=== PATIENT | female | born 1970 | race Caucasian/White ===

== ENCOUNTER 2016-08-16 15:46 | Emergency (ER) | payer MEDICARE, MEDICAID ==
[~2016-08-16] VITALS: Ht 175.3 cm; Wt 78.3 kg
[~2016-08-16 15:46] MED LIST: ALBU18HF2 INH; DOCU-118 PO; ESCI20TA30 PO; GABA-338 PO; HYDR50TA48 PO; LURA80TA PO; OMEP-122 PO
[2016-08-16 15:48] VITALS: Ht 175.3 cm; Wt 78.3 kg
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
--- OUTSIDE RECORDS SUMMARY | 2016-08-16 15:52 | XMS REPORT | Continuity of Care Document ---
Author Author [facility] Organization [facility] Address Unknown Phone Unavailable Care Team Providers Care Clinical Leader Name Role Phone OTHER Primary Care Physician [phone] Insurance Providers Payer Name Policy Number Subscriber Name Relationship Medicare/Other Insurance [id number] Ciera Aguilar 18 Self [facility] Community Plan [id number] Ciera Aguilar 20 Self Advance Directives Directive Response Recorded Date/Time Advanced Directives Type None 09/16/13 6:03pm Problems Medical Problems Problem Onset Date Status Nausea & vomiting Unknown Active Chronic diarrhea Unknown Active Nausea & vomiting Unknown Active Neck pain Unknown Active Neck pain Unknown Active Nausea & vomiting Unknown Active Nausea & vomiting Unknown Active Abdominal pain, bilateral upper quadrant Unknown Active Nausea & vomiting Unknown Active Patient left without being seen Unknown Active Medications Medication Dose Route Sig Days/Qty Instructions Order Date Discontinued Date Status Zolpidem Tartrate 10 Mg PO BEDTIME 04/05/12 10/27/12 Discontinued Estradiol 2 Mg PO DA 09/16/13 Active Zolpidem Tartrate 10 Mg PO BEDTIME 09/16/13 Active Quetiapine Fumarate 150 Mg PO BEDTIME 09/16/13 Active Doxylamine Succinate 25 Mg PO BEDTIME 09/16/13 Active Docusate Sodium 100 Mg PO TWICE A DAY 09/16/13 Active Loratadine 10 Mg PO DAILY 09/16/13 Active Escitalopram Oxalate 10 Mg PO DAILY 09/16/13 Active Buspirone Hcl 10 Mg PO TWICE A DAY 09/16/13 Active Ranitidine Hcl 150 Mg PO TWICE A DAY 09/16/13 Active Cyclobenzaprine HCl 1 Tab PO THREE TIMES A DAY For SPASMS 12 Qty MAY CAUSE DROWSINESS OR DIZZINESS 12/27/13 Active Ibuprofen 1 Tab PO Every 8 Hours PRN PAIN 20 Qty 12/27/13 Active Hydrocodone/Acetaminophen 1 Tab PO EVERY 4-6 HOURS PRN PAIN 12 Qty Active Promethazine HCl 1 Tab PO EVERY 4-6 HOURS For NAUSEA &/OR VOMITING 30 Qty 08/05/14 Active Social History Social History Problem Response Recorded Date/Time Chewing Tobacco Status No 09/16/2013 7:02pm Hx Substance Use No 08/05/2014 1:33pm Hx Alcohol Use No 08/05/2014 1:33pm Has the pt used tobacco in the last 12 months Yes 04/07/2012 7:16am Tobacco Usage smoke 09/17/2013 1:02am Query Response Start Date Stop Date Smoking Status Current every day smoker Hospital Discharge Instructions No hospital discharge instructions. Plan of Care No plan of care. Functional Status Query Response Date Recorded Physical Hygiene Self August 05, 2014 1:33pm Physical Hygiene Self August 05, 2014 1:33pm Allergies, Adverse Reactions, Alerts Allergen Type Severity Reaction Status Last Updated No Known Allergies Active 08/21/14 Immunizations Name Given Type Hx Influenza Vaccination Y 2005 Historical Hx Pneumococcal Vaccination No Historical Hx Influenza Vaccination Y 2005 Historical Vital Signs Acute Vital Signs Vital Response Date/Time Temperature (Fahrenheit) 98.2 deg F (96.8 - 99.1) Temperature (Calculated Celsius) 36.09095 degrees C (36.0 - 37.3) Pulse Rate (adult) 64 bpm (60 - 100) Respiratory Rate 18 breaths/min (10 - 20) O2 Sat by Pulse Oximetry 64 % (90 - 100) Blood Pressure 118/70 mm Hg Height 5 ft 7 in Weight 179 lb Body Mass Index 28.0 kg/m^2 Results Test Source Date Result Interp. Ref. Range Comments Alanine Aminotransferase (ALT/SGPT) August 05, 2014 1:48pm 27 U/L N 9-52 Albumin August 05, 2014 1:48pm 4.1 G/DL N 3.5-5.0 Albumin/Globulin Ratio August 05, 2014 1:48pm 1.3 RATIO N 1.1-2.2 Alkaline Phosphatase August 05, 2014 1:48pm 55 U/L N 38-126 Amylase Level August 05, 2014 1:48pm 63 U/L N 30-110 Anion Gap August 05, 2014 1:48pm 9 MEQ/L N 5-15 Aspartate Amino Transf (AST/SGOT) August 05, 2014 1:48pm 22 U/L N 14-36 BUN/Creatinine Ratio August 05, 2014 1:48pm 10 RATIO N 6-26 Basophils # (Auto) August 05, 2014 1:48pm 0.1 T/MM3 N 0-0.2 Basophils (%) (Auto) August 05, 2014 1:48pm 0.6 % N 0-2 Blood Urea Nitrogen August 05, 2014 1:48pm 11.0 MG/DL N 7-17 Calcium Level August 05, 2014 1:48pm 9.3 MG/DL N 8.4-10.2 Calculated Osmolality August 05, 2014 1:48pm 271 MOSM/KG N 261-280 Carbon Dioxide Level August 05, 2014 1:48pm 27 MEQ/L N 22-30 Chemistry Specimen Hemolysis August 05, 2014 1:48pm < 15 0-25 0-25: No Hemolysis.26-70: Slight Hemolysis - can falsely elevate K and Urine Protein. 71-285: Moderate Hemolysis - can falsely elevate K, Troponin I, CA 19-9, PTH, CSF GLucose, and Urine Protein, and can falsely decrease Phenytoin. 286-999: Gross Hemolysis - can falsely elevate K, Troponin I, CA 19-9, PTH, CSF Glucose, and Urine Protine, and can falsely decrease Phenytoin. Recommend specimen recollection. Chloride Level August 05, 2014 1:48pm 105 MEQ/L N 98-107 Creatinine August 05, 2014 1:48pm 1.1 MG/DL N 0.7-1.2 Eosinophils # (Auto) August 05, 2014 1:48pm 0.2 T/MM3 N 0-0.5 Eosinophils (%) (Auto) August 05, 2014 1:48pm 2.9 % N 0-4 Globulin August 05, 2014 1:48pm 3.1 G/DL N 2.4-3.6 Glomerular Filtration Rate Calc August 05, 2014 1:48pm 55 - Glucose Level August 05, 2014 1:48pm 123 MG/DL H 65-110 Hematocrit August 05, 2014 1:48pm 41.9 % N 36-46 Hemoglobin August 05, 2014 1:48pm 14.3 GM/DL N 12-16 Human Chorionic Gonadotropin, Qual April 07, 2012 7:00am Negative - COMMENT WILL CALLCOMMENT WILL CALL Icterus Index August 05, 2014 1:48pm < 2 0-7 Immature Granulocyte # (Auto) August 05, 2014 1:48pm 0.01 T/MM3 N 0.00- 0.03 Immature Granulocyte % (Auto) August 05, 2014 1:48pm 0.1 % N 0.0-0.5 Lipase August 05, 2014 1:48pm 72 U/L N 23-300 Lymphocytes # (Auto) August 05, 2014 1:48pm 3.2 T/MM3 N 1-4.8 Lymphocytes (%) (Auto) August 05, 2014 1:48pm 37.6 % N 23-45 Mean Corpuscular Hemoglobin August 05, 2014 1:48pm 30.0 UUG N 26-34 Mean Corpuscular Hemoglobin Concent August 05, 2014 1:48pm 34.1 GM/DL N 31-37 Mean Corpuscular Volume August 05, 2014 1:48pm 87.8 UM3 N 80-100 Mean Platelet Volume August 05, 2014 1:48pm 10.8 UM3 N 9.4-12.4 Monocytes # (Auto) August 05, 2014 1:48pm 0.7 T/MM3 N 0-0.8 Monocytes (%) (Auto) August 05, 2014 1:48pm 8.1 % N 0-9.0 Neutrophils # (Auto) August 05, 2014 1:48pm 4.3 T/MM3 N 1.8-7.7 Neutrophils (%) (Auto) August 05, 2014 1:48pm 50.7 % N 33-66 Platelet Count August 05, 2014 1:48pm 216 T/MM3 N 130-400 Potassium Level August 05, 2014 1:48pm 4.3 MEQ/L N 3.6-5 RDW Standard Deviation August 05, 2014 1:48pm 40.8 FL N 36.9-50.2 Red Blood Count August 05, 2014 1:48pm 4.77 M/MM3 N 4.00-5.20 Sodium Level August 05, 2014 1:48pm 141 MEQ/L N 134-144 Total Bilirubin August 05, 2014 1:48pm 0.70 MG/DL N 0.20-1.30 Total Protein August 05, 2014 1:48pm 7.2 G/DL N 6.3-8.2 Turbidity August 05, 2014 1:48pm < 20 0-20 Urinalysis Comment August 05, 2014 1:36pm Microscopic not ind. - Has specimen been collected/obtained? Y Urine Bilirubin August 05, 2014 1:36pm Negative - Has specimen been collected/obtained? Y Urine Blood August 05, 2014 1:36pm Trace-intact H - Has specimen been collected/obtained? Y Urine Collection Type August 05, 2014 1:36pm Voided-not cc-midstr - Has specimen been collected/obtained? Y Urine Color August 05, 2014 1:36pm Yellow - Has specimen been collected/obtained? Y Urine Glucose (UA) August 05, 2014 1:36pm Negative - Has specimen been collected/obtained? Y Urine Ketones August 05, 2014 1:36pm Trace H - Has specimen been collected/obtained? Y Urine Leukocyte Esterase August 05, 2014 1:36pm Negative - Has specimen been collected/obtained? Y Urine Nitrite August 05, 2014 1:36pm Negative - Has specimen been collected/obtained? Y Urine Protein August 05, 2014 1:36pm Negative - Has specimen been collected/obtained? Y Urine Specific [place] August 05, 2014 1:36pm >=1.030 H - Has specimen been collected/obtained? Y Urine Turbidity August 05, 2014 1:36pm Clear - Has specimen been collected/obtained? Y Urine Urobilinogen August 05, 2014 1:36pm 0.2 EU/DL - Has specimen been collected/obtained? Y Urine pH August 05, 2014 1:36pm 6.0 - Has specimen been collected/ obtained? Y White Blood Count August 05, 2014 1:48pm 8.4 T/MM3 N 4.5-11.0 Name: CIERA AGUILAR Unit #: [id number] : 1970 Sex: F Loc / Svc: ED DOS: 08/05/14 Signed Report #: [id number] DIAGNOSTIC IMAGING REPORT TYPE OF EXAM: ABDOMEN ACUTE (INC. CHEST) Dictated By: STEPHANI BLANKENSHIP MD Indication: ITS.REASON: epigastric pain, cough and vomiting ABDOMEN ACUTE (INC. CHEST): Comparison: None FINDINGS: The lungs are clear. There is no abnormal airspace opacity, pleural effusion or pneumothorax identified. The heart size, pulmonary vasculature and mediastinum are within normal limits. There is no free air on the upright view. The bowel gas pattern is nonobstructive and nonspecific. Gas is seen in nondilated small and large bowel to the level of the rectum. Moderate stool is seen throughout the colon. The bony structures are grossly unremarkable.. Piercing hardware noted incidentally. Cholecystectomy clips. Densities in the colon likely related to ingested substances or medication. IMPRESSION: 1. No acute cardiopulmonary abnormality. 2. No evidence of acute obstruction or free air. . Procedures Procedure Status Date Provider(s) ROUTINE VENIPUNCTURE completed 08/05/14 X-RAY EXAM SERIES ABDOMEN completed 08/05/14 COMPREHEN METABOLIC PANEL completed 08/05/14 URINALYSIS AUTO W/O SCOPE completed 08/05/14 ASSAY OF AMYLASE completed 08/05/14 ASSAY OF LIPASE completed 08/05/14 COMPLETE CBC W/AUTO DIFF WBC completed 08/05/14 HYDRATE IV INFUSION ADD-ON completed 08/05/14 THER/PROPH/DIAG INJ IV PUSH completed 08/05/14 TX/PRO/DX INJ NEW DRUG ADDON completed 08/05/14 EMERGENCY DEPT VISIT completed 08/05/14 [id number]"INJECTION, KETOROLAC TROMETHAMINE, PER 15 MG" completed 08/05/14 [id number]"INJECTION, PROMETHAZINE HCL, UP TO 50 MG" completed 08/05/14 [id number]"INFUSION, NORMAL SALINE SOLUTION , 1000 CC" completed 08/05/14 Encounters Encounter Location Date/Time Registered Emergency Room [facility] 08/21/14 8:41pm Departed Emergency Room [facility] 08/05/14 1:29pm Recent Diagnosis
--- OUTSIDE RECORDS SUMMARY | 2016-08-16 15:52 | XMS REPORT | Continuity of Care Document ---
Author Author [facility] Organization [facility] Address Unknown Phone Unavailable Care Team Providers Care Flight Paramedic Name Role Phone WHITLEY LEMOS MD Primary Care Physician [phone] Insurance Providers Payer Name Policy Number Subscriber Name Relationship Medicare/Other Insurance [id number] Ciera Aguilar 18 Self [facility] Community Plan [id number] Ciera Aguilar 20 Self Advance Directives Directive Response Recorded Date/Time Advanced Directives Type None 09/16/13 6:03pm Problems Medical Problems Problem Onset Date Status Nausea & vomiting Unknown Active Chronic diarrhea Unknown Active Nausea & vomiting Unknown Active Neck pain Unknown Active Neck pain Unknown Active Medications Medication Dose Route Sig [...] Mg PO TWICE A DAY 09/16/13 Active Ondansetron 4 Mg PO EVERY 4-6 HOURS PRN NAUSEA &/OR VOMITING 10 Qty 02/20 Active Hydrocodone Bit/Acetaminophen 1 Udtab PO q4-6 For PAIN 10 Qty Active Cyclobenzaprine HCl 1 Tab PO THREE TIMES A DAY For SPASMS 12 Qty MAY CAUSE DROWSINESS OR DIZZINESS 12/27/13 Active Ibuprofen 1 Tab PO Every 8 Hours PRN PAIN 20 Qty 12/27/13 Active Hydrocodone/Acetaminophen 1 Tab PO EVERY 4-6 HOURS PRN PAIN 12 Qty Active Social History Social History Problem Response Recorded Date/Time Smoking Status Current every day smoker 09/16/2013 7:02pm Chewing Tobacco Status No 09/16/2013 7:02pm Hx Substance Use No 12/27/2013 7:01am Hx Alcohol Use No 12/27/2013 7:01am Has the pt used tobacco in the last 12 months Yes 04/07/2012 7:16am Query Response Start Date Stop Date Smoking Status Current every day smoker Hospital Discharge Instructions No hospital discharge instructions. Plan of Care No plan of care. Functional Status Query Response Date Recorded Physical Hygiene Self December 27, 2013 7:01am Disabilities None December 27, 2013 7:01am Devices Used None December 27, 2013 7:01am Dressing Self December 27, 2013 7:01am Ambulation Self December 27, 2013 7:01am Diet Self December 27, 2013 7:01am Mental Status Alert Oriented December 27, 2013 7:01am Disabilities None December 27, 2013 7:01am Devices Used None December 27, 2013 7:01am Physical Hygiene Self December 27, 2013 7:01am Dressing Self December 27, 2013 7:01am Ambulation Self December 27, 2013 7:01am Diet Self December 27, 2013 7:01am Allergies, Adverse Reactions, Alerts Allergen Type Severity Reaction Status Last Updated No Known Allergies Active 12/27/13 Immunizations Name Given Type Hx Influenza Vaccination Y 2005 Historical Hx Pneumococcal Vaccination No Historical Hx Influenza Vaccination Y 2005 Historical Vital Signs Acute Vital Signs Vital Response Date/Time Temperature (Fahrenheit) 97.4 deg F (96.8 - 99.1) Temperature (Calculated Celsius) 36.24282 degrees C (36.0 - 37.3) Pulse Rate (adult) 66 bpm (60 - 100) Respiratory Rate 16 breaths/min (10 - 20) O2 Sat by Pulse Oximetry 99 % (90 - 100) Blood Pressure 127/79 mm Hg Height 5 ft 8 in Weight 190 lb Body Mass Index 28.0 kg/m^2 Results Test Source Date Result Interp. Ref. Range Comments Alanine Aminotransferase (ALT/SGPT) September 16, 2013 7:18pm 28 U/L N 9-52 Albumin September 16, 2013 7:18pm 4.0 G/DL N 3.5-5.0 Albumin/Globulin Ratio September 16, 2013 7:18pm 1.4 RATIO N 1.1-2.2 Alkaline Phosphatase September 16, 2013 7:18pm 68 U/L N 38-126 Amylase Level September 16, 2013 7:18pm 67 U/L N 30-110 Anion Gap September 16, 2013 7:18pm 7 MEQ/L N 5-15 Aspartate Amino Transf (AST/SGOT) September 16, 2013 7:18pm 19 U/L N 14-36 BUN/Creatinine Ratio September 16, 2013 7:18pm 12 RATIO N 6-26 Basophils # (Auto) September 16, 2013 7:18pm 0.0 T/MM3 N 0-0.2 Basophils (%) (Auto) September 16, 2013 7:18pm 0.4 % N 0-2 Blood Urea Nitrogen September 16, 2013 7:18pm 12.0 MG/DL N 7-17 Calcium Level September 16, 2013 7:18pm 9.2 MG/DL N 8.4-10.2 Calculated Osmolality September 16, 2013 7:18pm 275 MOSM/KG N 261-280 Carbon Dioxide Level September 16, 2013 7:18pm 28 MEQ/L N 22-30 Chloride Level September 16, 2013 7:18pm 108 MEQ/L H 98-107 Creatinine September 16, 2013 7:18pm 1.0 MG/DL N 0.7-1.2 Eosinophils # (Auto) September 16, 2013 7:18pm 0.2 T/MM3 N 0-0.5 Eosinophils (%) (Auto) September 16, 2013 7:18pm 2.1 % N 0-4 Globulin September 16, 2013 7:18pm 2.8 G/DL N 2.4-3.6 Glucose Level September 16, 2013 7:18pm 107 MG/DL N 65-110 Hematocrit September 16, 2013 7:18pm 42.6 % N 36-46 Hemoglobin September 16, 2013 7:18pm 14.3 GM/DL N 12-16 Human Chorionic Gonadotropin, Qual April 07, 2012 7:00am Negative - COMMENT WILL CALLCOMMENT WILL CALL Lipase September 16, 2013 7:18pm 118 U/L N 23-300 Lymphocytes # (Auto) September 16, 2013 7:18pm 0.7 T/MM3 L 1-4.8 Lymphocytes (%) (Auto) September 16, 2013 7:18pm 9.0 % L 23-45 Mean Corpuscular Hemoglobin September 16, 2013 7:18pm 30.2 UUG N 26-34 Mean Corpuscular Hemoglobin Concent September 16, 2013 7:18pm 33.6 GM/DL N 31- 37 Mean Corpuscular Volume September 16, 2013 7:18pm 90.1 UM3 N 80-100 Mean Platelet Volume September 16, 2013 7:18pm 10.4 UM3 N 9.4-12.4 Monocytes # (Auto) September 16, 2013 7:18pm 0.3 T/MM3 N 0-0.8 Monocytes (%) (Auto) September 16, 2013 7:18pm 4.1 % N 0-9.0 Neutrophils # (Auto) September 16, 2013 7:18pm 6.8 T/MM3 N 1.8-7.7 Neutrophils (%) (Auto) September 16, 2013 7:18pm 84.3 % H 33-66 Platelet Count September 16, 2013 7:18pm 183 T/MM3 N 130-400 Potassium Level September 16, 2013 7:18pm 4.0 MEQ/L N 3.6-5 RDW Standard Deviation September 16, 2013 7:18pm 41.9 FL N 36.9-50.2 Red Blood Count September 16, 2013 7:18pm 4.73 M/MM3 N 4.00-5.20 Sodium Level September 16, 2013 7:18pm 143 MEQ/L N 134-144 Total Bilirubin September 16, 2013 7:18pm 0.70 MG/DL N 0.20-1.30 Total Protein September 16, 2013 7:18pm 6.8 G/DL N 6.3-8.2 Urine Bilirubin September 16, 2013 8:18pm Negative - Has specimen been collected/obtained? Y Urine Blood September 16, 2013 8:18pm Negative - Has specimen been collected/obtained? Y Urine Collection Type September 16, 2013 8:18pm Voided-not cc-midstr - Has specimen been collected/obtained? Y Urine Color September 16, 2013 8:18pm Yellow - Has specimen been collected/ obtained? Y Urine Glucose (UA) September 16, 2013 8:18pm Negative - Has specimen been collected/obtained? Y Urine Ketones September 16, 2013 8:18pm Negative - Has specimen been collected/obtained? Y Urine Leukocyte Esterase September 16, 2013 8:18pm Negative - Has specimen been collected/obtained? Y Urine Nitrite September 16, 2013 8:18pm Negative - Has specimen been collected/obtained? Y Urine Protein September 16, 2013 8:18pm Negative - Has specimen been collected/obtained? Y Urine Specific [place] September 16, 2013 8:18pm 1.025 - Has specimen been collected/obtained? Y Urine Turbidity September 16, 2013 8:18pm Clear - Has specimen been collected/obtained? Y Urine Urobilinogen September 16, 2013 8:18pm 0.2 EU/DL - Has specimen been collected/obtained? Y Urine pH September 16, 2013 8:18pm 6.0 - Has specimen been collected/ obtained? Y White Blood Count September 16, 2013 7:18pm 8.0 T/MM3 N 4.5-11.0 Chemistry Specimen Hemolysis September 16, 2013 7:18pm < 15 0-25 0-25: No Hemolysis.26-70: Slight [...] can falsely decrease Phenytoin. Recommend specimen recollection. Urinalysis Comment September 16, 2013 8:18pm Microscopic not ind. - Has specimen been collected/obtained? Y Turbidity September 16, 2013 7:18pm < 20 0-20 Glomerular Filtration Rate Calc September 16, 2013 7:18pm 61 - Immature Granulocyte # (Auto) September 16, 2013 7:18pm 0.01 T/MM3 N 0.00- 0.03 Immature Granulocyte % (Auto) September 16, 2013 7:18pm 0.1 % N 0.0-0.5 Icterus Index September 16, 2013 7:18pm < 2 0-7 Name: CIERA AGUILAR Unit #: [id number] : 1970 Sex: F Loc / [facility] [place]: ED DOS: Signed Report #: [id number] DIAGNOSTIC IMAGING REPORT TYPE OF EXAM: CERVICAL SPINE 4 OR 5 VIEWS Dictated By: STEPHANI BLANKENSHIP MD INDICATION: ITS.REASON: 2 weeks of neck pain / no trauma CERVICAL SPINE 4 OR 5 VIEWS: Comparison: None Findings: Cervical alignment is straightened with loss of the normal lordosis. Cervicothoracic junction is intact. No acute fracture or subluxation. No significant disk space narrowing. Oblique views show no obvious neural foraminal stenosis. Odontoid view appears normal. No significant degenerative uncovertebral or facet changes. Impression: No acute osseous abnormality. Straightening of the alignment could relate to muscular spasm or strain. No significant degenerative changes. . Procedures No known history of procedures. Encounters Encounter Location Date/Time Registered Emergency Room [facility] 12/27/13 6:29am Recent Diagnosis
--- OUTSIDE RECORDS SUMMARY | 2016-08-16 15:53 | XMS REPORT | Continuity of Care Document ---
Author Author [facility] Organization [facility] Address Unknown Phone Unavailable Care Team Providers Care Toolmaker Name Role Phone WHITLEY LEMOS MD Primary Care Physician [phone] Insurance Providers Payer Name Policy Number Subscriber Name Relationship Medicare/Other Insurance [id number] Ciera Aguilar 20 Self [facility] Community Plan [id number] Ciera Aguilar 20 Self Medicare Ciera Aguilar 20 Self Advance Directives Directive Response Recorded Date/Time Advanced Directives Type None 09/16/13 6:03pm Problems Medical Problems Problem Onset Date Status Nausea & vomiting Unknown Active Chronic diarrhea Unknown Active Nausea & vomiting Unknown Active Neck pain Unknown Active Neck pain Unknown Active Nausea & vomiting Unknown Active Nausea & vomiting Unknown Active Abdominal pain, bilateral upper quadrant Unknown Active Medications Medication Dose Route Sig [...] Physical Hygiene Self August 05, 2014 1:33pm Disabilities None August 05, 2014 1:33pm Devices Used None August 05, 2014 1:33pm Dressing Self August 05, 2014 1:33pm Ambulation Self August 05, 2014 1:33pm Diet Self August 05, 2014 1:33pm Mental Status Alert Oriented August 05, 2014 3:29pm Disabilities None August 05, 2014 1:33pm Devices Used None August 05, 2014 1:33pm Physical Hygiene Self August 05, 2014 1:33pm Dressing Self August 05, 2014 1:33pm Ambulation Self August 05, 2014 1:33pm Diet Self August 05, 2014 1:33pm Allergies, Adverse Reactions, Alerts Allergen Type Severity Reaction Status Last Updated No Known Allergies Active 08/05/14 Immunizations Name Given Type Hx Influenza Vaccination Y 2005 Historical Hx Pneumococcal Vaccination No Historical Hx Influenza Vaccination Y 2005 Historical Vital Signs Acute Vital Signs Vital Response Date/Time Temperature (Fahrenheit) 96.0 deg F (96.8 - 99.1) Temperature (Calculated Celsius) 35.99911 degrees C (36.0 - 37.3) Pulse Rate (adult) 48 bpm (60 - 100) Respiratory Rate 16 breaths/min (10 - 20) O2 Sat by Pulse Oximetry 96 % (90 - 100) Blood Pressure 102/61 mm Hg Height 5 ft 8 in Weight 181 lb Body Mass Index 27.0 kg/m^2 Results Test Source Date Result Interp. [...] Has specimen been collected/obtained? Y Urine Specific [place] August 05, 2014 1:36pm >=1.030 H - [...] 05, 2014 1:48pm 8.4 T/MM3 N 4.5-11.0 Procedures No known history of procedures. Encounters Encounter Location Date/Time Departed Emergency Room [facility] 08/05/14 1:29pm Recent Diagnosis
--- OUTSIDE RECORDS SUMMARY | 2016-08-16 15:54 | XMS REPORT | Continuity of Care Document ---
Author Author [facility] Organization [facility] Address Unknown Phone Unavailable Allergies Medications Problems Procedures Results Encounters ACCT No. Visit Date/Time Discharge Status Pt. Type Provider Facility Loc./Unit Complaint [id number] 06/07/2013 14:07:00 06/07/2013 23 :59:59 CLS Outpatient
[2016-08-16] MEDS ORDERED: CYPR4TAB37 PO (16:10)
--- NOTE | 2016-08-16 16:22 | ERPDOC ---
Departure Disposition Decision Date: Aug 16, 2016 Disposition Decision Time: 17:40 Disposition: 01 DISCHARGED HOME, SELF-CARE Impression Impression Impression: Primary Impression: Nausea & vomiting Vomiting type: unspecified Vomiting Intractability: non-intractable Qualified Codes: R11.2 - Nausea with vomiting, unspecified Additional Impressions: Chronic diarrhea UTI (urinary tract infection) Urinary tract infection type: acute cystitis Hematuria presence: without hematuria Qualified Codes: N30.00 - Acute cystitis without hematuria Severity: Moderate Condition: Improved Seen By: Physician only Referrals: NANCY RATLIFF DO (Family) Follow up for continued treatment and to discuss your anexity Patient Instructions: Chronic Diarrhea (ED) Problems/Meds/Labs Reviewed?: Yes Medications reviewed and manag: Yes Follow up care ordered?: Yes Mental Status: Alert, Oriented Scripts Ciprofloxacin HCl (Ciprofloxacin HCl) 500 Mg Tablet 500 MG PO BID for 5 Days, 0 Refills Prov: JANET MUNOZ MD 08/16/16 Ondansetron HCl (Zofran) 4 Mg Tablet 4 MG PO Q6H Y for NAUSEA, #15 TAB Prov: JANET MUNOZ MD 08/16/16 Promethazine HCl (Promethazine HCl) 25 Mg Tablet 1 TAB PO Q6H Y for NAUSEA &/OR VOMITING, #15 Prov: JANET MUNOZ MD 08/16/16 HPI - Abdominal Pain General Chief Complaint: Nausea,Vomiting,Diarrhea Stated Complaint: SEIZURE LIKE ACTIVITY Time Seen by Provider: 16:22 Source: patient History/Exam Limitations: no limitations HPI - Abdominal Pain Initial Comments Patient is a 45-year-old female, patient brought to the emergency room for evaluation by EMS. Patient original call was for seizure-like activity, on arrival of EMS patient was found to be shaking, complaining of anxiety. Patient 's had emesis nausea and vomiting and diarrhea for the past 2 days, unable to keep down food or fluids. Patient brought to the ER for evaluation Allergies: Coded Allergies: No Known Allergies (Unverified , 04/19/16) Past History Past Medical History Hx Echocardiogram: No GI: GERD, IBS, gallbladder disease Neurological: concussion Psychological: anxiety, bipolar, depression Surgical History General: EGD, colonoscopy, gallbladder Reproductive/: , hysterectomy Family History Family PMH: FOUND: CHF, cancer, hypertension Vaccines Hx Influenza Vaccination: Yes (2005) Hx Pneumococcal Vaccination: No Social History # of Packs/Tins per Day: 0.5 # of Years: 29 Second Hand Exposure: Yes Substance Use Type: does not use Alcohol Intake: none Marital Status: In a relationship Sexuality: male partner Housing: apartment Household Members: significant other Current Occupational Status: disabled Review of Systems Constitutional Constitutional: appetite decrease, weakness, DENIES: chills, dizziness, fever Eyes Vision: DENIES: double vision, loss of visual morales ENMT Sinuses: DENIES: congestion Mouth/Throat: DENIES: scratchy throat, sore throat Cardiovascular Cardiac: DENIES: chest pain, dyspnea on exertion Pulmonary Respiratory: DENIES: cough, dyspnea, sputum, tachypnea GI Upper Abdomen: nausea, vomiting, DENIES: pain Lower Abdomen: diarrhea, DENIES: constipation, pain General: DENIES: frequency, urgency Musculoskeletal General: DENIES: cramps, pain Integumentary Skin: DENIES: color change, itching, rash Endocrine Endocrine: DENIES: heat/cold intolerance Physical Exam General General Nourishment: well nourished, well developed General Body Habitus: well groomed Vitals and Pain Weight: Kilograms: 78.300 Height (feet): 5 Height (inches): 9.00 Triage Pain Scale: RN VS reviewed by Provider: Yes Eyes (brief) Eyes Brief: found: EOMI ENMT (brief) ENMT Brief: FOUND: mucosa moist, normal dentition, NOT FOUND: nasal erythema, pharnyx erythema, tonsillar deviation Neck (brief) Neck: NOT FOUND: adenopathy, spasm, tenderness Respiratory (brief) Respiratory: FOUND: clear all morales, equal bilaterally, NOT FOUND: rales, wheezes Cardiovascular (brief) Cardiac: FOUND: regular rate, regular rhythm Capillary Refill: <2 sec Abdomen Palpation: FOUND: soft, NOT FOUND: Obturator sign, Psoas sign, involuntary guarding, tender, voluntary guarding Auscultation: FOUND: normoactive Lymphatic (brief) Lymphatic Brief: NOT FOUND: adenopathy Musculoskeletal (brief) Musculoskeletal Brief: NOT FOUND: spasm, tenderness Integumentary (brief) Integumentary Brief: FOUND: dry, pink, warm, NOT FOUND: rash Neurologic (brief) Neurological Brief: FOUND: CN w/o gross def to obs, motor-no gross deficits, sensory-no gross deficits Psychiatric (brief) Psychiatric Brief: FOUND: alert, oriented Differential Diagnoses Considering: Biliary Colic, Bowel Obstruction, Cholecystitis, Dehydration, Diverticulitis, Food Poisoning, Gastroenteritis, Gastroparesis, Giardiasis, Hepatitis, Hyponatremia, Hypokalemia, Hypoglycemia, Pancreatitis, UTI Progress Results/Orders Orders Procedure Category Date Status Time Iv Lock (Ed Only) EDM 08/16/16 Transmitted 16:30 Cbc W/Auto LAB 08/16/16 Complete Diff-Reflex Manual 16:30 Cmp - Comprehensive LAB 08/16/16 Complete Metabolic 16:30 Lipase LAB 08/16/16 Complete 16:30 Normal Saline (Normal PHA 08/16/16 Complete Saline Iv) 16:30 Troponin I W LAB 08/16/16 Complete Hemolysis Index 16:30 Ondansetron Inj PHA 08/16/16 Complete (Zofran) 16:30 Promethazine PHA 08/16/16 Complete (Phenergan) 16:30 Kub W/Upright RAD 08/16/16 Resulted 17:04 UA, LAB 08/16/16 Complete Dip&Micro(Complete) & 17:27 Urine Culture YULISSA 08/16/16 Complete 17:52 Lab Results Laboratory Tests Test 08/16/16 16:30 08/16/16 17:27 White Blood Count 8.9T/MM3 Red Blood Count 5.64M/MM3 Hemoglobin 16.5GM/DL Hematocrit 49.2% Mean Corpuscular Volume 87.2UM3 Mean Corpuscular Hemoglobin 29.3UUG Mean Corpuscular Hemoglobin Concent 33.5GM/DL RDW Standard Deviation 45.1FL Platelet Count 261T/MM3 Mean Platelet Volume 10.7UM3 Immature Granulocyte % (Auto) 0.0% Neutrophils (%) (Auto) 69.8% Lymphocytes (%) (Auto) 17.5% Monocytes (%) (Auto) 11.1% Eosinophils (%) (Auto) 1.3% Basophils (%) (Auto) 0.3% Absolute Immature Granulocyte (auto 0.00T/MM3 Absolute Neutrophils (auto) 6.2T/MM3 Absolute Lymphocytes (auto) 1.6T/MM3 Absolute Monocytes (auto) 1.0T/MM3 Absolute Eosinophils (auto) 0.1T/MM3 Absolute Basophils (auto) 0.0T/MM3 Turbidity < 20 Sodium Level 145MEQ/L Potassium Level 4.1MEQ/L Chloride Level 107MEQ/L Carbon Dioxide Level 21MEQ/L Anion Gap 17MEQ/L Blood Urea Nitrogen 15.0MG/DL Creatinine 1.0MG/DL Glomerular Filtration Rate Calc 61 BUN/Creatinine Ratio 15RATIO Glucose Level 123MG/DL Calculated Osmolality 281MOSM/KG Calcium Level 9.8MG/DL Total Bilirubin 0.60MG/DL Icterus Index < 2 Aspartate Amino Transf (AST/SGOT) 32U/L Alanine Aminotransferase (ALT/SGPT) 34U/L Alkaline Phosphatase 72U/L Troponin I < 0.012ng/ml Total Protein 7.8G/DL Albumin 4.4G/DL Globulin 3.4G/DL Albumin/Globulin Ratio 1.3RATIO Lipase 64U/L Chemistry Specimen Hemolysis < 15 Urine Collection Type Voided-not cc-midstr Urine Color Yellow Urine Turbidity Sl cloudy Urine pH 5.0 Urine Specific [place] >=1.030 Urine Protein Trace Urine Glucose (UA) Negative Urine Ketones 1+ Urine Blood 1+ Urine Nitrite Negative Urine Bilirubin 2+ Urine Urobilinogen 0.2EU/DL Urine Leukocyte Esterase Negative Urine RBC 0-1/HPF Urine WBC 1-3/HPF Urine Squamous Epithelial Cells 0-5 Urine Amorphous Urates Moderate Urine Bacteria 3+ Urine Culture Indicated Cult not indicated Medications Current ED Medications Sodium Chloride (Normal Saline IV) 1,000 ml @ 999 mls/hr Q1H1M ONCE IV Last administered on 08/16/16 16:34; Start 08/16/16 at 16:30; Stop 08/16/16 at 17:30; Status DC Ondansetron HCl (Zofran) 4 mg O ONCE IV Last administered on 08/16/16 16:40; Start 08/16/16 at 16:30; Stop 08/16/16 at 16:33; Status DC Promethazine HCl (Phenergan) 25 mg O ONCE IV Last administered on 08/16/16 16: 45; Start 08/16/16 at 16:30; Stop 08/16/16 at 16:33; Status DC Xray Xray : Xray: KUB Upright Interpretation: Normal, Interpreted by Me (no free air nor fluid levels nonspecific bowel gas pattern) JANET MUNOZ MD Aug 16, 2016 16:22
[2016-08-16] MEDS ORDERED: ONDANSETRON 4mg/2ml INJECTION IV ONE (16:30)
[2016-08-16] MEDS ORDERED: NORMAL SALINE 1,000 ML IV ONE (16:30)
[2016-08-16] MEDS ORDERED: PROMETHAZINE 25 MG INJECTION IV ONE (16:30)
--- NOTE | 2016-08-16 16:34 | NUR ---
MEDS/STATUS PT GIVEN INSTRUCTION REGARDING NS, ZOFRAN AND PHENERGAN. DAUGHTER AT BEDSIDE, PT TEARFUL. PT STATES "IT'S ANXIETY." DAUGTHER TEARFUL AT BEDSIDE WELL. PROVIDED EMOTIONAL SUPPORT, REPEATED PLAN OF CARE. UNDERSTANDING VERBALIZED.
--- OUTSIDE RECORDS SUMMARY | 2016-08-16 16:43 | XMS REPORT | Continuity of Care Document ---
Author Author [facility] Organization [facility] Address Unknown Phone Unavailable Care Team Providers Care Senior Ui Designer Name Role Phone WHITLEY LEMOS MD Primary Care Physician [phone] Insurance Providers Payer Name Policy Number Subscriber Name Relationship Medicare/Other Insurance [id number] Ciera Aguilar 18 Self [facility] Community Plan [id number] Ciera Aguilar 20 Self Advance Directives Directive [...] F (96.8 - 99.1) Temperature (Calculated Celsius) 36.61075 degrees C (36.0 - 37.3) Pulse Rate [...] Has specimen been collected/obtained? Y Urine Specific [place] September 16, 2013 8:18pm 1.025 - Has [...] 2 0-7 Name: CIERA AGUILAR Unit #: [id number] : 1970 Sex: F [place] [facility] [place]: Signed Report #: [id number] DIAGNOSTIC IMAGING REPORT TYPE OF EXAM: CERVICAL [...] Encounters Encounter Location Date/Time Registered Emergency Room [facility] 12/27/13 6:29am Recent Diagnosis
--- OUTSIDE RECORDS SUMMARY | 2016-08-16 16:43 | XMS REPORT | Continuity of Care Document ---
Author Author [facility] Organization [facility] Address Unknown Phone Unavailable Care Team Providers Care Dope Pourer Name Role Phone OTHER Primary Care Physician [phone] Insurance Providers Payer Name Policy Number Subscriber Name Relationship Medicare/Other Insurance [id number] Ciera Aguilar 20 Self [facility] Community Plan [id number] Ciera Aguilar 20 Self Advance Directives Directive [...] F (96.8 - 99.1) Temperature (Calculated Celsius) 36.45723 degrees C (36.0 - 37.3) Pulse Rate [...] Has specimen been collected/obtained? Y Urine Specific [place] August 05, 2014 1:36pm >=1.030 H - [...] N 4.5-11.0 Name: CIERA AGUILAR Unit #: [id number] : 1970 Sex: F Loc / Svc: ED DOS: 08/05/14 Signed Report #: [id number] DIAGNOSTIC IMAGING REPORT TYPE OF EXAM: ABDOMEN [...] completed 08/05/14 EMERGENCY DEPT VISIT completed 08/05/14 [id number]"INJECTION, KETOROLAC TROMETHAMINE, PER 15 MG" completed 08/05/14 [id number]"INJECTION, PROMETHAZINE HCL, UP TO 50 MG" completed 08/05/14 [id number]"INFUSION, NORMAL SALINE SOLUTION , 1000 CC" completed 08/05/14 Encounters Encounter Location Date/Time Registered Emergency Room [facility] 08/21/14 8:41pm Departed Emergency Room [facility] 08/05/14 1:29pm Recent Diagnosis
--- OUTSIDE RECORDS SUMMARY | 2016-08-16 16:45 | XMS REPORT | Continuity of Care Document ---
Author Author [facility] Organization [facility] Address Unknown Phone Unavailable Care Team Providers Care Snap Attacher Name Role Phone WHITLEY LEMOS MD Primary Care Physician [phone] Insurance Providers Payer Name Policy Number Subscriber Name Relationship Medicare/Other Insurance [id number] Ciera Aguilar 20 Self [facility] Community Plan [id number] Ciera Aguilar 20 Self Medicare Ciera Aguilar [...] F (96.8 - 99.1) Temperature (Calculated Celsius) 35.49845 degrees C (36.0 - 37.3) Pulse Rate [...] Has specimen been collected/obtained? Y Urine Specific [place] August 05, 2014 1:36pm >=1.030 H - [...] Encounters Encounter Location Date/Time Departed Emergency Room [facility] 08/05/14 1:29pm Recent Diagnosis
--- OUTSIDE RECORDS SUMMARY | 2016-08-16 16:45 | XMS REPORT | Continuity of Care Document ---
Author Author [facility] Organization [facility] Address Unknown Phone Unavailable Allergies Medications Problems Procedures Results Encounters ACCT No. Visit Date/Time Discharge Status Pt. Type Provider Facility Loc./Unit Complaint [id number] 06/07/2013 14:07:00 06/07/2013 23 :59:59 CLS Outpatient
[2016-08-16 16:47] LABS: BASOPHILS % (AUTO) 0.3 % (0-2); EOSINOPHILS # (AUTO) 0.1 T/MM3 (0-0.5); EOSINOPHILS % (AUTO) 1.3 % (0-4); HCT - HEMATOCRIT 49.2 % (36-46); HGB - HEMOGLOBIN 16.5 GM/DL (12-16); LYMPHOCYTES # (AUTO) 1.6 T/MM3 (1-4.8); LYMPHOCYTES % (AUTO) 17.5 % (23-45); MEAN CORPUSCULAR HGB 29.3 UUG (26-34); MEAN CORPUSCULAR HGB CONC(MCHC 33.5 GM/DL (31-37); MEAN CORPUSCULAR VOLUME 87.2 UM3 (80-100); MEAN PLATELET VOLUME 10.7 UM3 (9.4-12.4); MONOCYTES % (AUTO) 11.1 % (0-9.0); NEUTROPHILS #(AUTO)-ABSOLUTE 6.2 T/MM3 (1.8-7.7); NEUTROPHILS % (AUTO) 69.8 % (33-66); RED BLOOD COUNT 5.64 M/MM3 (4.00-5.20); WBC - WHITE BLOOD COUNT 8.9 T/MM3 (4.5-11.0)
[2016-08-16 16:56] LABS: ALBUMIN 4.4 G/DL (3.5-5.0); ALBUMIN/GLOBULIN RATIO 1.3 RATIO (1.1-2.2); ALKALINE PHOSPHATASE 72 U/L (38-126); ALT (SGPT) 34 U/L (9-52); ANION GAP 17 MEQ/L (5-15); AST (SGOT) 32 U/L (14-36); BUN/CREATININE RATIO 15 RATIO (6-26); CALCIUM 9.8 MG/DL (8.4-10.2); CHLORIDE 107 MEQ/L (98-107); CO2 - CARBON DIOXIDE 21 MEQ/L (22-30); GLOMERULAR FILTRATION RATE 61; GLUCOSE 123 MG/DL (65-110); LIPASE 64 U/L (23-300); POTASSIUM 4.1 MEQ/L (3.6-5); SODIUM 145 MEQ/L (134-144); TOTAL PROTEIN 7.8 G/DL (6.3-8.2)
--- NOTE | 2016-08-16 17:27 | NUR ---
UA PT VOIDED PRINCESS COLORED URINE. SPECIMEN SENT TO LAB.
--- NOTE | 2016-08-16 17:28 | NUR ---
XRY PT TO XRY VIA WC.
--- NOTE | 2016-08-16 17:34 | NUR ---
DR DR MUNOZ AT BEDSIDE.
[2016-08-16 17:42] LABS: BLOOD, URINE 1+ (NEGATIVE); COLOR,URINE YELLOW (YELLOW); LEUKOCYTE ESTERASE ,URINE NEGATIVE (NEGATIVE); NITRITE,URINE NEGATIVE (NEGATIVE); UROBILINOGEN,URINE 0.2 EU/DL (NORMAL)
[2016-08-16] MEDS ORDERED: ONDA4TAB4 PO (17:43)
[2016-08-16] MEDS ORDERED: PROM25TA7 PO (17:43)
[2016-08-16 17:52] LABS: BACTERIA,URINE 3+ (NEGATIVE); RBC,URINE 0-1 /HPF (0-3); SQUAMOUS EPITHELIAL CELL,UR 0-5
[2016-08-16] MEDS ORDERED: CIPR-280 PO (17:54)
--- NOTE | 2016-08-16 17:56 | NUR ---
STATUS PT RESTING, L SIDE LYING. PT DENIES PAIN. PT STATES HER NAUSEA IS IMPROVED.
--- NOTE | 2016-08-16 17:57 | NUR ---
DR DR MUNOZ AT BEDSIDE.
[2016-08-16 18:04] VITALS: BP 113/69; PULSE 70; RESP 12; TEMP 97.7; O2SAT 98
--- NOTE | 2016-08-16 18:04 | NUR ---
DEPART PT TAKEN TO PRIVATE CARE VIA WC BY THIS RN. PT'S MOTHER IS SUPERINTENDENT [employer]IVERS. PT'S MOTHER INQUIRED REGARDING MISSING SILVER CROSS EARRING. INFORMED MOTHER THAT NO JEWELRY WAS FOUND IN ROOM, BUT THAT I COULD CONTACT [facility].
--- NOTE | 2016-08-16 18:10 | NUR ---
[facility] CONTACTED, SPOKE WITH TRANSPORTING V[employer] V[employer]UM INSPECTOR, MARYSOL. MARYSOL STATED THAT THEY HAD NOT FOUND ANY SILVER CROSS EARRING.
--- NOTE | 2016-08-16 22:15 | DI ---
Indication: ITS.REASON: abdominal pain nausea vomiting PROCEDURE: KUB W/UPRIGHT: Encounter: Initial Comparison: January 23, 2016 Findings: The visualized lung bases are clear. There is no free air on the upright view. The bowel gas pattern is nonobstructive and nonspecific. Gas is seen in nondilated small and large bowel to the level of the rectum. Moderate stool is seen throughout the colon. The bony structures are grossly unremarkable. Cholecystectomy clips. Impression: Nonobstructive nonspecific bowel gas pattern. .
== END 2016-08-16 18:04 | disposition home or self-care (01) ==
LOC: ED 15:46
DX: R11.2 Nausea with vomiting, unspecified (principal); K52.9 Noninfective gastroenteritis and colitis, unspecified; N30.00 Acute cystitis without hematuria
CPT/HCPCS: 74020; 80053; 81001; 83690; 84484; 85025; 87086; 96361; 96374; 96375; 99284; J2405; J2550; J7030